=== PATIENT | male | born 1935 | race Caucasian/White ===

== ENCOUNTER 2021-10-27 22:32 | Inpatient (IN) ==
[2021-10-28] MEDS ORDERED: Ondansetron 4 MG/2 ML VIAL IVP PRN (01:48)
[2021-10-28] MEDS ORDERED: Naloxone 0.4 MG/ML INJ IVP PRN (01:48)
[2021-10-28 02:37] LABS: Eosinophils # 0.2 K/mcL (0.0-0.6); Hematocrit 34.6 % (37.5-50.1); Hemoglobin 11.2 g/dL (12.9-16.9); Mean Corpuscular HGB Conc 32.4 g/dL (31.6-35.5); Mean Corpuscular Hemoglobin 29.3 pg (28.0-33.3); Mean Corpuscular Volume 90.6 fL (83.0-100.0); Mean Platelet Volume 8.8 fL (9.4-12.4); Platelet Count 156 K/mcL (140-400); Red Blood Count 3.82 M/mcL (4.19-5.50); Red Cell Distribution Width 16.6 % (11.5-14.5); White Blood Count 10.6 K/mcL (4.3-11.1)
[2021-10-28 02:55] LABS: BUN/Creatinine Ratio 21 (6-26); Blood Urea Nitrogen 27 mg/dL (8-23); Calcium 8.3 mg/dL (8.6-10.3); Carbon Dioxide 24 mEq/L (23-29); Chloride 108 mEq/L (98-107); Glucose 174 mg/dL (70-105); Magnesium 2.2 mg/dL (1.6-2.6); Osmolality,Calculated 299 (280-300); Phosphorous 3.4 mg/dL (2.7-4.5); Potassium 3.5 mEq/L (3.5-5.1); Sodium 140 mEq/L (136-145); eGFR For African Americans > 60 (> 60); eGFR For Non-African Americans 54 (> 60)
[2021-10-28 03:01] LABS: Prothrombin Time 10.7 Seconds (9.4-12.1)
[2021-10-28 04:43] LABS: Lymphocytes # 6.8 K/mcL (0.6-4.6); Monocytes # 0.6 K/mcL (0.0-1.3)
[2021-10-28] MEDS ORDERED: D5% in Water 1,000 ML IVC PRN (06:29)
[2021-10-28] MEDS ORDERED: *HR* Dextrose 50 % in Water (Syg) 50 ML SYRINGE IVP PRN (06:29)
[2021-10-28] MEDS ORDERED: Dextrose Gel 15 GM/37.5 ML TUBE PO PRN ×2 (06:29)
[2021-10-28] MEDS ORDERED: *HR* Heparin 5,000 UNIT/ML VIAL SQ SCH (06:45)
[2021-10-28] MEDS: Torsemide 20 MG TABLET PO SCH (08:54)
[2021-10-28] MEDS: Finasteride 5 MG TABLET PO SCH (08:54)
[2021-10-28] MEDS ORDERED: Insulin LISPRO 300 UNITS/3 ML VIAL SUBQ SCH (12:00)
[2021-10-28] MEDS: amLODIPine 5 MG TABLET PO SCH (13:45)
[2021-10-28] MEDS: *HR* Heparin 5,000 UNIT/ML VIAL SQ SCH (20:17)
[2021-10-29 02:59] LABS: Hematocrit 34.9 % (37.5-50.1); Hemoglobin 11.3 g/dL (12.9-16.9); Mean Corpuscular HGB Conc 32.4 g/dL (31.6-35.5); Mean Corpuscular Hemoglobin 29.9 pg (28.0-33.3); Mean Corpuscular Volume 92.3 fL (83.0-100.0); Mean Platelet Volume 8.9 fL (9.4-12.4); Platelet Count 138 K/mcL (140-400); Red Blood Count 3.78 M/mcL (4.19-5.50); Red Cell Distribution Width 16.7 % (11.5-14.5); White Blood Count 10.8 K/mcL (4.3-11.1)
[2021-10-29] MEDS: *HR* Heparin 5,000 UNIT/ML VIAL SQ SCH ×2 (07:38→20:40)
[2021-10-29] MEDS: Torsemide 20 MG TABLET PO SCH (07:38)
[2021-10-29] MEDS: amLODIPine 5 MG TABLET PO SCH (07:38)
[2021-10-29] MEDS: Finasteride 5 MG TABLET PO SCH (07:38)
[2021-10-30] MEDS: amLODIPine 5 MG TABLET PO SCH (10:01)
[2021-10-30] MEDS: Torsemide 20 MG TABLET PO SCH (10:02)
[2021-10-30] MEDS: Finasteride 5 MG TABLET PO SCH (10:02)
[2021-10-30] MEDS: *HR* Heparin 5,000 UNIT/ML VIAL SQ SCH ×2 (10:02→21:50)
[2021-10-31 05:10] LABS: Hematocrit 33.1 % (37.5-50.1); Hemoglobin 10.8 g/dL (12.9-16.9)
[2021-10-31 07:20] VITALS: O2SAT 97
[2021-10-31] MEDS: Torsemide 20 MG TABLET PO SCH (08:29)
[2021-10-31] MEDS: Finasteride 5 MG TABLET PO SCH (08:29)
[2021-10-31] MEDS: amLODIPine 5 MG TABLET PO SCH (08:29)
[2021-10-31] MEDS: *HR* Heparin 5,000 UNIT/ML VIAL SQ SCH (08:29)
[2021-10-31 10:55] VITALS: BP 147/69; PULSE 74; TEMP 97.9
[2021-10-31 11:34] LABS: Influenza A PCR Negative (Negative); Influenza B PCR Negative (Negative); Resp. Syncytial Virus PCR Negative (Negative)
[2021-10-31 11:35] LABS: SARS-CoV-2 by PCR (In House) Negative (Negative)
== END 2021-10-31 14:58 | disposition other institution (70) | DRG 536 ==
LOC: 3ANU → SUATTDRO 10-28 01:38
PROVIDERS: ADMIT Internal Medicine; ATTEND Internal Medicine